=== PATIENT | female | born 2005 | race Caucasian/White ===

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

== ENCOUNTER 2023-12-12 15:00 | Outpatient (CLI) | payer OTHER ==
[~2023-12-12] VITALS: Ht 167.6 cm; Wt 72.7 kg
[2023-12-12 14:50] VITALS: BP 138/63; O2SAT 100
[~2023-12-12 15:00] MED LIST changes: -ALBUTEROL SULFATE 2.5 MG/0.5 ML INH NEB SOLN INH PRN; +ALBUTEROL SULFATE 2.5MG/0.5ML INH NEB SOLN INH PRN; -IRON SUCROSE 300 MG in NS 250 ML OVER 90 MIN. IV ONE; -diphenhydrAMINE 25MG CAP PO ONE; -diphenhydrAMINE 50MG/ML VIAL (J1200) IV PRN; +diphenhydrAMINE 50MG/ML VIAL IV PRN
[2023-12-12] MEDS: IRON SUCROSE 300 MG in NS 250 ML IV ONE (15:10)
[2023-12-12 17:00] VITALS: BP 137/78; O2SAT 100
== END 2023-12-12 17:00 | disposition home or self-care (01) ==
LOC: M INFU 15:00
PROVIDERS: ATTEND Obstetrics & Gynecology
DX: D64.9 Anemia, unspecified (principal)
CPT/HCPCS: 96365; J1756

== ENCOUNTER 2023-12-20 11:51 | Outpatient (CLI) | payer OTHER ==
[~2023-12-20] VITALS: Ht 167.6 cm; Wt 72.7 kg
[~2023-12-20 11:51] MED LIST changes: -NS 1,000 ML IV SCH
[2023-12-20] MEDS ORDERED: NS 1,000 ML IV SCH (12:00)
[2023-12-20 12:02] VITALS: BP 124/76; O2SAT 100
[2023-12-20] MEDS: IRON SUCROSE 300 MG in NS 250 ML OVER 90 MIN. IV ONE (12:24)
[2023-12-20 14:35] VITALS: BP 121/72; O2SAT 99
== END 2023-12-20 14:35 | disposition home or self-care (01) ==
LOC: M INFU 11:51
PROVIDERS: ATTEND Obstetrics & Gynecology
DX: D64.9 Anemia, unspecified (principal)
CPT/HCPCS: 96365; 96366; J1756

== ENCOUNTER 2023-12-27 12:05 | Outpatient (CLI) | payer OTHER ==
[~2023-12-27] VITALS: Ht 167.6 cm; Wt 72.7 kg
[2023-12-27 12:05] VITALS: BP 122/74; O2SAT 98
[~2023-12-27 12:05] MED LIST changes: +NS 1,000 ML IV SCH
[2023-12-27] MEDS: IRON SUCROSE 300 MG in NS 250 ML IV ONE (12:22)
[2023-12-27 14:01] VITALS: BP 122/71; O2SAT 95
== END 2023-12-27 14:05 ==
LOC: M INFU 12:05
PROVIDERS: ATTEND Obstetrics & Gynecology
DX: D64.9 Anemia, unspecified (principal)
CPT/HCPCS: 96365; 96366; J1756

== ENCOUNTER 2024-01-03 12:05 | Outpatient (CLI) | payer OTHER ==
[~2024-01-03] VITALS: Ht 167.6 cm; Wt 68.1 kg
[2024-01-03 12:05] VITALS: BP 140/79; O2SAT 99
[2024-01-03] MEDS: IRON SUCROSE 300 MG in NS 250 ML OVER 90 MIN. IV ONE (12:18)
[2024-01-03 13:50] VITALS: BP 120/64; O2SAT 97
== END 2024-01-03 13:55 ==
LOC: M INFU 12:05
PROVIDERS: ATTEND Obstetrics & Gynecology
DX: D64.9 Anemia, unspecified (principal)
CPT/HCPCS: 96365; 96366; J1756

== ENCOUNTER 2024-02-25 08:04 | Day surgery (SDC) | payer OTHER ==
[~2024-02-25] VITALS: Ht 167.6 cm; Wt 77.1 kg
[~2024-02-25 08:04] MED LIST changes: -ALBUTEROL SULFATE 2.5MG/0.5ML INH NEB SOLN INH PRN; -EPINEPHrine INJ 1 MG/ML 1ML AMP IM PRN; +METF10004 PO; -NS 1,000 ML IV SCH; -diphenhydrAMINE 50MG/ML VIAL IV PRN; -methylPREDNISolone 125MG 2ML VIAL IV PRN
[2024-02-25] MEDS ORDERED: LR 1,000 ML IV SCH (08:15)
[2024-02-25 08:42] LABS: HEMATOCRIT 37.6 % (36.0-47.0); HEMOGLOBIN 12.5 g/dl (12.0-15.5)
[2024-02-25] MEDS ORDERED: ROCURONIUM BROMIDE 50MG/5ML VIAL As Ordered ONE (09:23)
[2024-02-25] MEDS ORDERED: propofoL 200 MG/20 ML VIAL As Ordered ONE (09:23)
[2024-02-25] MEDS ORDERED: ACETAMINOPHEN 1000MG 100ML IV BAG As Ordered ONE (09:23)
[2024-02-25] MEDS ORDERED: SUGAMMADEX SODIUM 500 MG/5 ML VIAL (BRIDION) As Ordered ONE (09:23)
[2024-02-25] MEDS ORDERED: LIDOCAINE 2% 100MG/5ML SDV (FOR ANES.) As Ordered ONE (09:23)
[2024-02-25] MEDS ORDERED: KETOROLAC 60MG 2ML VIAL As Ordered ONE (09:24)
[2024-02-25] MEDS ORDERED: ONDANSETRON 4MG 2ML VIAL As Ordered ONE (09:24)
[2024-02-25] MEDS ORDERED: fentaNYL 100 MCG/2 ML INJECTION As Ordered ONE (09:25)
[2024-02-25] MEDS ORDERED: MIDAZOLAM INJ 2MG/2ML VIAL As Ordered ONE (09:25)
[2024-02-25] MEDS: SILVER NITRATE APPLICATOR (1 = QTY 10) As Ordered ONE (11:26)
[2024-02-25] MEDS: LIDOCAINE 1% MDV 20ML VIAL As Ordered ONE (11:27)
[2024-02-25] MEDS ORDERED: HYDROmorphone HCL 2MG/ML 1ML VIAL As Ordered ONE (11:48)
[2024-02-25] MEDS ORDERED: fentaNYL 100 MCG/2 ML INJECTION IV PRN (12:00)
[2024-02-25] MEDS ORDERED: oxyCODONE 5MG TAB PO PRN ×2 (12:00→13:50)
[2024-02-25] MEDS: MORPHINE 2 MG/ML 1ML VIAL IV PRN (12:17)
[2024-02-25] MEDS: ONDANSETRON 4MG 2ML VIAL IV PRN (12:17)
[2024-02-25 14:10] VITALS: BP 115/71; TEMP 96.8; O2SAT 98
== END 2024-02-25 14:15 | disposition home or self-care (01) ==
LOC: M SDC 08:04
PROVIDERS: ATTEND Obstetrics & Gynecology
DX: N93.9 Abnormal uterine and vaginal bleeding, unspecified (principal); N94.6 Dysmenorrhea, unspecified; N80.9 Endometriosis, unspecified; R76.0 Raised antibody titer; Z79.84 Long term (current) use of oral hypoglycemic drugs; E28.2 Polycystic ovarian syndrome; G43.909 Migraine, unspecified, not intractable, without status migrainosus
CPT/HCPCS: 36415; 49321; 58558; 81025; 85014; 85018; 86850; 86870; 86900; 86901; 88305; 93005; J0131; J0665; J1100; J1171; J1885; J2250; J2405; J3010